=== PATIENT | male | born 2000 | race Two or more races ===

== ENCOUNTER 2022-10-16 18:33 | Emergency (ER) | payer SELFPAY ==
[2022-10-16 20:33] LABS: Bacteria/HPF None Seen HPF (None Seen); Bilirubin Negative (Negative); Blood, Urine 2+ (Negative); CAUTI Indications for Culture Dysuria,urgency,freq; Clarity Extra Turbid (Clear); Glucose, Urine (Dipstick) Normal (Negative); Ketone, Urine 40 mg/dL (Negative); Leukocyte 500 Leu/uL (Negative); Nitrite Negative (Negative); Protein, Urine (Dipstick) 200 mg/dL (Neg-Trace); RBC/HPF Greater than 50 HPF (0-3); Specific Gravity, Urine 1.026 (1.002-1.036); Squamous Epithelial 0-3 HPF (0-3); WBC/HPF Greater than 50 HPF (0-3); pH, Urine 6.5 (5.0-9.0)
[2022-10-16 20:35] LABS: Urine Culture Reflex Yes Yes
[2022-10-16] MEDS ORDERED: cefTRIAXone (ROCEPHIN) 500 MG VIAL ONE (22:45)
[2022-10-16] MEDS ORDERED: Lidocaine 1% PF 5 ML VIAL ONE (22:46)
[2022-10-16] MEDS ORDERED: Azithromycin 250 MG TAB ONE ×2 (22:46→22:59)
[2022-10-18 00:47] LABS: GC N.gonorrhoeae PCR,UrineVOID DETECTED (NotDetected)
[2022-10-18 00:53] LABS: Chlam.trachomatis by PCR,Urine *Indeterminate (NotDetected)
== END 2022-10-16 23:11 | disposition home or self-care (01) ==
LOC: ERS 18:33
DX: N39.0 Urinary tract infection, site not specified (principal)
CPT/HCPCS: 76870; 81001; 87086; 87491; 87591; 96372; J0696